=== PATIENT | female | born 1945 | race Caucasian/White ===

== ENCOUNTER 2021-11-21 12:55 | Outpatient (CLI) | payer MEDICARE, SELFPAY ==
--- NOTE | 2021-11-21 13:30 | CRLHL7_ITS ---
For Patients: As a result of the Century Cures Act, medical imaging exams and procedure reports are released immediately into your electronic medical record. You may view this report before your referring provider. If you have questions, please contact your health care provider. DXA BONE MINERAL DENSITY STUDY Current height (in): 64.5 Weight (lb): 205.0 Menopause age: 37 Ethnicity: White 1. Have you had a previous hip or vertebral fracture? No. 2. Have you had any fractures during your adult life which did not result from significant trauma (e.g., auto accident)? No. 3. Did either of your parents have a hip fracture? No. 4. Do you smoke? No. 5. Have you ever taken Glucocorticoids? No. 6. Do you have rheumatoid arthritis? No. 7. Do you have secondary osteoporosis? No. 8. Do you drink 3 or more alcoholic drinks per day? No. 9. Are you being treated for osteoporosis? No. 10. Have you ever taken any of the following medications: Actonel, Evista, Fosamax, Miacalcin, Reclast, Boniva, Forteo, HRT (i.e. estrogen/hormone therapy), Protelos, Prolia, Vitamin D, Calcium, other ??? please specify. ANSWER: Yes, Vitamin D, Calcium. 11. Do you have any of the following medical conditions: Anorexia or bulimia, asthma or emphysema, end stage renal disease, hyperparathyroidism, any seizure disorders, cancer, inflammatory bowel diseases, hysterectomy, other ??? please specify. ANSWER: Yes, Cancer, hysterectomy. 12. What was your maximum height (inches)? 54.5. 13. Do you perform weight bearing exercise regularly? No. 14. Do you regularly consume dairy products? Yes. 15. Do you drink caffeinated beverages? Yes. 16. At what age did your period start? 15. 17. Are you premenopausal? No. 18. How many full term pregnancies have you had? 3. 19. Have you ever missed your period for more than 6 months in a row (not including or menopause)? No. TECHNIQUE: Bone mineral density study was performed using the [email or web address]. FINDINGS: The results of the study expressed as bone mineral density (BMD) are as follows: Lumbar spine L1to L4: BMD: 0.992 g/cm2. T-score: -0.5. Z-score: 1.9. Neck Left: BMD: 0.791 g/cm2. T-score: -0.5. Z-score: 1.5. Right: BMD: 0.789 g/cm2. T-score: -0.5. Z-score: 1.5. Total Left: BMD: 0.965 g/cm2. T-score: 0.2. Z-score: 2.0. Right: BMD: 1.000 g/cm2. T-score: 0.5. Z-score: 2.2. IMPRESSION: Normal bone density. *Comparison exams done prior to 10/2019 were performed on different unit, Booster. COMPARISON: Compared with scan of 05/17/2018, the bone mineral density has decreased by 1.6 percent at the spine and increased by 2.6 percent at the hip. Compared with scan of 07/15/2012, the bone mineral density has increased by 1.4 percent at the spine and increased 5.6 percent at the hip. Naman Paige M.D. Diagnostic Radiologist [email or web address] DSM/pjt PT/Dictated by: Naman Paige MD @ 11/26/2021 8:32:00 AM (Electronically Signed)
--- NOTE | 2021-11-21 14:00 | CRLHL7_ITS ---
For Patients: As a result of the Century Cures Act, medical imaging exams and procedure reports are released immediately into your electronic medical record. You may view this report before your referring provider. If you have questions, please contact your health care provider. BILATERAL MAMMOGRAM WITH COMPUTER-AIDED DETECTION AND TOMOSYNTHESIS TECHNIQUE: CC and MLO views were obtained. These mammographic images have been obtained using full-field digital technique. These mammographic images were interpreted with the benefit of computer-aided detection. Breast Tomosynthesis was used in this interpretation. COMPARISON FILM: 09/20/2020, 05/27/2019, 05/17/2018. FINDINGS: There are scattered areas of fibroglandular density IMPRESSION: There is no radiographic evidence for malignancy. ASSESSMENT: BI-RADS Category 1: Negative RECOMMENDATION: Routine screening mammogram in 1 year. A lay language report of this examination will be provided to the patient. Naman Paige M.D. Diagnostic Radiologist [email or web address] REYNALDO/Dictated by: Naman Paige MD @ 11/22/2021 10:17:00 AM (Electronically Signed)
== END 2021-11-21 12:56 | disposition home or self-care (01) ==
LOC: RAD 12:57
PROVIDERS: PCP Physician Assistant Medical; Visit Provider Physician Assistant Medical
DX: Z12.31 Encounter for screening mammogram for malignant neoplasm of breast (principal); M85.80 Other specified disorders of bone density and structure, unspecified site
CPT/HCPCS: 77063; 77067; 77080

== ENCOUNTER 2022-06-11 14:32 | Outpatient (CLI) | payer MEDICARE, SELFPAY | END 2022-06-11 14:33 | disposition home or self-care (01) | LOC: FRMREF 06-13 09:13 | PROVIDERS: PCP Physician Assistant Medical; Visit Provider Physician Assistant Medical | DX: R30.0 Dysuria (principal); I10 Essential (primary) hypertension; E78.5 Hyperlipidemia, unspecified; R61 Generalized hyperhidrosis; R06.00 Dyspnea, unspecified; F41.9 Anxiety disorder, unspecified; R82.71 Bacteriuria; B96.1 Klebsiella pneumoniae [K. pneumoniae] as the cause of diseases classified elsewhere | CPT/HCPCS: 87086; 87186 ==

== ENCOUNTER 2022-09-17 11:28 | Outpatient (CLI) | payer MEDICARE, SELFPAY | END 2022-09-17 11:29 | disposition home or self-care (01) | LOC: NFLDREF 09-18 16:15 | PROVIDERS: PCP Physician Assistant Medical; Referring Provider Physician Assistant Medical; Visit Provider Physician Assistant Medical | DX: Z00.00 Encounter for general adult medical examination without abnormal findings (principal); E78.5 Hyperlipidemia, unspecified; I10 Essential (primary) hypertension; F41.9 Anxiety disorder, unspecified; F32.A Depression, unspecified; Z13.29 Encounter for screening for other suspected endocrine disorder; L65.9 Nonscarring hair loss, unspecified | CPT/HCPCS: 80053; 80061; 84443 ==

== ENCOUNTER 2022-10-30 15:15 | Outpatient (RCR) | payer MEDICARE, SELFPAY | END 2023-02-03 11:55 | disposition home or self-care (01) | PROVIDERS: PCP Physician Assistant Medical; Visit Provider Family Medicine | DX: M62.830 Muscle spasm of back (principal); R52 Pain, unspecified; Z74.09 Other reduced mobility; Z51.89 Encounter for other specified aftercare | CPT/HCPCS: 97110; 97140; 97161 ==

== ENCOUNTER 2023-05-13 08:46 | Outpatient (CLI) | payer MEDICARE, SELFPAY ==
--- NOTE | 2023-05-13 09:15 | CRLHL7_ITS ---
For Patients: As a result of the Cures Act, medical imaging exams and procedure reports are released immediately into your electronic medical record. You may view this report before your referring provider. If you have questions, please contact your health care provider. BILATERAL SCREENING MAMMOGRAM WITH COMPUTER-AIDED DETECTION AND TOMOSYNTHESIS TECHNIQUE: CC and MLO views were obtained. These mammographic images have been obtained using full-field digital technique. These mammographic images were interpreted with the benefit of computer-aided detection. Breast Tomosynthesis was used in this interpretation. COMPARISON FILM: 11/21/21, 09/20/20, 05/27/19. FINDINGS: There are scattered areas of fibroglandular density IMPRESSION: There is no radiographic evidence for malignancy. ASSESSMENT: BI-RADS Category 1: Negative RECOMMENDATION: Routine screening mammogram in 1 year. A lay language report of this examination will be provided to the patient. Naman Paige M.D. Diagnostic Radiologist [email or web address] ANTONINO/[email or web address] / be/Dictated by: Naman Paige MD @ 05/13/2023 10:20:00 AM (Electronically Signed)
== END 2023-05-13 08:47 | disposition home or self-care (01) ==
LOC: MAMMO 08:47
PROVIDERS: PCP Physician Assistant Medical; Visit Provider Physician Assistant Medical
DX: Z12.31 Encounter for screening mammogram for malignant neoplasm of breast (principal)
CPT/HCPCS: 77063; 77067

== ENCOUNTER 2023-05-26 11:37 | Outpatient (CLI) | payer MEDICARE, SELFPAY ==
--- NOTE | 2023-05-26 13:45 | MR_ITS ---
[address] [address] Phone:?[phone] Fax:?[phone] Referring Physician Information: Pebbles Bobo [address] [facility] [address] Phone:?[phone] Fax:?[phone] Patient:Shayy Dooely D.O.B:?1945 Sex:?Female Phone:?[phone] [facility] MRN:?[id number] Exam Date:?05/26/2023 EXAM: MRI of the LEFT KNEE, without contrast CLINICAL: Other specified disorders of bone, lower leg. COMPARISONS: X-rays dated 05/19/23. TECHNICAL: Multiplanar multisequence MRI of the left knee was obtained. SEDATION: None. CONTRAST: None. FINDINGS: Ligaments: ACL: Intact and unremarkable. PCL: Intact and unremarkable. MCL: Intact and unremarkable. LCL: Intact and unremarkable. Posterolateral corner: Popliteus, biceps femoris, iliotibial band, and the popliteofibular ligament appear intact. Posteromedial corner: Semimembranosus, pes anserine tendons and posterior oblique ligament appear intact. Extensor mechanism: Patellar tendon: Intact, without tendinopathy. Quadriceps tendon: Intact, without tendinopathy. Retinacula: Medial and lateral retinacula are intact. Fat pads: Unremarkable infrapatellar Hoffa's, quadriceps and prefemoral fat pads. Patellofemoral joint: Patella: Full thickness chondral loss involves the junction of the medial patellar facet and patellar median ridge with minimal underlying subchondral reactive edema as seen on axial series 4 images 10-12. Grade 2 chondral loss involving the remainder of the patellar median ridge. Trochlea: There is full-thickness chondral loss along the inferior trochlea with mild underlying subchondral reactive marrow edema. Medial compartment: Medial meniscus: There is high-grade complex tearing involving the posterior root as seen on sagittal series 6 image 13-14 and coronal series 8 image 20-23. Degenerative signal changes and mild fraying involving the posterior horn extending into the junction with the body segment. Approximately 4 mm of medial extrusion of the peripheral body segment medial meniscus into the medial gutter. Medial cartilage: Deep chondral fissuring involving the weightbearing medial femoral condyle on coronal series 8 image 19 and sagittal series 6 image 12. Medial tibial plateau cartilage is preserved. Lateral compartment: Lateral meniscus: No evidence of discrete meniscal tear or meniscal displacement. Lateral cartilage: Small 3 mm segment of full-thickness chondral loss involving the lateral tibial plateau on coronal series 8 image 19. Lateral femoral condyle cartilage is preserved. Knee joint: Effusion: Small left knee effusion. Intra-articular bodies:?No convincing bodies identified. Popliteal cyst: Very small. Bones: No suspicious bone marrow signal alteration or fracture line. IMPRESSION: 1. High-grade complex tearing involving the posterior root medial meniscus with associated extrusion of the peripheral body segment medial meniscus into the medial gutter. Degenerative signal changes and mild fraying involving the posterior horn extending into the junction with the body segment medial meniscus. 2. Chondral loss involving the patellofemoral compartment as above. Small 3 mm segment of full-thickness chondral loss involves the lateral tibial plateau with deep chondral fissuring involving the weightbearing medial femoral condyle. 3. Small joint effusion. 4. No evidence of ligamentous injury or fracture. Fibular head appears unremarkable. JCZ Electronically signed on 05/26/2023 1:37:00 PM by Adeel Rahman D.O.
== END 2023-05-26 11:38 | disposition home or self-care (01) ==
LOC: MRI 11:38
PROVIDERS: PCP Physician Assistant Medical; Visit Provider Physician Assistant Surgical
DX: M25.562 Pain in left knee (principal); S83.232A Complex tear of medial meniscus, current injury, left knee, initial encounter; M25.462 Effusion, left knee; M89.8X6 Other specified disorders of bone, lower leg
CPT/HCPCS: 73721

== ENCOUNTER 2023-06-10 14:30 | Outpatient (RCR) | payer MEDICARE, SELFPAY | END 2023-08-27 15:03 | disposition home or self-care (01) | PROVIDERS: PCP Physician Assistant Medical; Visit Provider Physician Assistant Surgical | DX: S83.232A Complex tear of medial meniscus, current injury, left knee, initial encounter (principal); M25.562 Pain in left knee; R29.898 Other symptoms and signs involving the musculoskeletal system; Z51.89 Encounter for other specified aftercare | CPT/HCPCS: 97110; 97161 ==

== ENCOUNTER 2024-01-05 09:35 | Outpatient (CLI) | payer MEDICARE, SELFPAY | END 2024-01-05 09:36 | disposition home or self-care (01) | PROVIDERS: PCP Physician Assistant Medical; Visit Provider Physician Assistant Medical | DX: Z00.00 Encounter for general adult medical examination without abnormal findings (principal); I10 Essential (primary) hypertension; E78.5 Hyperlipidemia, unspecified; F41.9 Anxiety disorder, unspecified; F32.A Depression, unspecified; R73.9 Hyperglycemia, unspecified | CPT/HCPCS: 80053; 80061; 84443 ==

== ENCOUNTER 2024-05-19 11:10 | Outpatient (CLI) | payer MEDICARE, SELFPAY ==
--- NOTE | 2024-05-19 11:30 | CRLHL7_ITS ---
For Patients: As a result of the Century Cures Act, medical imaging exams and procedure reports are released immediately into your electronic medical record. You may view this report before your referring provider. If you have questions, please contact your health care provider. LEFT SCREENING MAMMOGRAM WITH COMPUTER-AIDED DETECTION AND TOMOSYNTHESIS TECHNIQUE: CC and MLO views were obtained. These mammographic images have been obtained using full-field digital technique. These mammographic images were interpreted with the benefit of computer-aided detection. Breast tomosynthesis was used in this interpretation. COMPARISON FILM: 05/13/23, 11/21/21, 09/20/20. FINDINGS: There are scattered areas of fibroglandular density. IMPRESSION: There is no radiographic evidence for malignancy. ASSESSMENT: BI-RADS Category 1: Negative RECOMMENDATION: Routine screening mammogram in 1 year. A lay language report of this examination will be provided to the patient. NAMAN RAMIREZ M.D. Diagnostic Radiologist [email or web address] ANTONINO/travis Transcribed: 05/19/2024, 3:[address]/Dictated by: Naman Ramirez MD @ 05/19/2024 12:01:00 PM (Electronically Signed)
== END 2024-05-19 11:11 | disposition home or self-care (01) ==
PROVIDERS: PCP Physician Assistant Medical; Visit Provider Physician Assistant Medical
DX: Z12.31 Encounter for screening mammogram for malignant neoplasm of breast (principal)
CPT/HCPCS: 77063; 77067

== ENCOUNTER 2025-01-03 08:07 | Outpatient (CLI) | payer MEDICARE, SELFPAY | END 2025-01-03 08:08 | disposition home or self-care (01) | LOC: NFLDREF 01-08 04:01 | PROVIDERS: PCP Physician Assistant Medical; Referring Provider Physician Assistant Medical; Visit Provider Physician Assistant Medical | DX: E78.2 Mixed hyperlipidemia (principal); I10 Essential (primary) hypertension | CPT/HCPCS: 80053; 80061; 84443 ==